=== PATIENT | female | born 1985 | race Caucasian/White ===

== ENCOUNTER 2022-03-01 09:00 | Inpatient (IN) | payer OTHER ==
[2022-03-01] MEDS: ELECTROLYTE-148 SOLN 1,000 ML IV SCH (09:15)
[2022-03-01 10:37] VITALS: BMI 29.8
[2022-03-01 11:07] LABS: BASO % 0.2 % (0-2.0); EOS % 0.3 % (0-4.5); HEMATOCRIT 34.4 % (32.4-45.2); HEMOGLOBIN 11.4 GM/dL (10.7-15.3); LYMPH % 11.7 % (8-40); MCH 29.4 pg (25.7-33.7); MCHC 33.2 g/dl (32.0-36.0); MEAN CELL VOLUME 88.8 fl (80-96); MEAN PLT VOLUME 9.6 fl (7.5-11.1); NEUT % 79.8 % (42.8-82.8); PLATELET COUNT 218 10^3/uL (134-434); RBC 3.87 M/mm3 (3.60-5.2); RDW 13.5 % (11.6-15.6); WHITE BLOOD COUNT 14.8 K/mm3 (4.0-10.0)
[2022-03-01 11:11] LABS: INR 0.97 (0.83-1.09); PROTHROMBIN TIME (PATIENT) 11.2 SEC (9.7-13.0)
[2022-03-01 11:13] LABS: ACTIVATED PTT 24.3 SECONDS (25.2-36.5)
[2022-03-01 11:32] LABS: BLOOD UREA NITROGEN 6.3 mg/dL (7-18); CALCIUM 8.9 mg/dL (8.5-10.1)
[2022-03-01 11:36] LABS: CREATININE 0.6 mg/dL (0.55-1.3)
[2022-03-01] MEDS ORDERED: FENTANYL/BUPIVACAINE/NS/PF - PCEA - 50 ML DISP.SYRIN EP ONE ×2 (14:57→18:43)
[2022-03-01] MEDS ORDERED: BUPIVACAINE HCL/PF 0.25% (2.5MG/ML) 10 ML VIAL ONE (15:03)
[2022-03-01] MEDS ORDERED: OXYTOCIN 30 UNITS in 0.9% NS 30 UNIT/500 ML INFUS.BAG IVPB ONE (19:14)
[2022-03-01] MEDS ORDERED: OXYTOCIN 30 UNITS in 0.9% NS 30 UNIT/500 ML INFUS.BAG IVPB SCH (19:15)
[2022-03-01] MEDS ORDERED: NALOXONE HCL 0.4 MG/ML VIAL IVPUSH PRN (19:23)
[2022-03-01] MEDS ORDERED: FENTANYL/BUPIVACAINE/NS/PF - PCEA - 50 ML DISP.SYRIN EP SCH (19:30)
[2022-03-01] MEDS ORDERED: ceFAZolin SODIUM 1 GM VIAL ONE (20:12)
[2022-03-01] MEDS ORDERED: ceFAZolin 2 GRAM PREMIX BAG IVPB ONE (20:19)
[2022-03-01] MEDS ORDERED: CITRIC ACID/SODIUM CITRATE 30 ML UNIT-DOSE CUP PO ONE (20:21)
[2022-03-01] MEDS ORDERED: CEFAZOLIN SODIUM 2 GM in DEXTROSE 5%-WATER 100 ML IVPB ONE (20:30)
[2022-03-01] MEDS ORDERED: OXYTOCIN 10 UNITS/ML VIAL ONE ×2 (21:21→21:57)
[2022-03-01] MEDS ORDERED: GENTAMICIN SO4 80 MG/2 ML VIAL ONE (21:22)
[2022-03-01] MEDS ORDERED: ACETAMINOPHEN INJECTION 100 ML IVPB ONE (21:27)
[2022-03-01] MEDS ORDERED: KETOROLAC TROMETHAMINE 30 MG/1 ML VIAL ONE (21:39)
[2022-03-01] MEDS ORDERED: ONDANSETRON 4 MG/2 ML VIAL ONE (21:39)
[2022-03-01] MEDS ORDERED: METHYLERGONOVINE MALEATE 0.2 MG/1 ML AMP IM PRN (22:17)
[2022-03-01] MEDS ORDERED: ACETAMINOPHEN 325 MG TABLET (FP) PO PRN (22:17)
[2022-03-01] MEDS ORDERED: IBUPROFEN 800 MG/8 ML IJ IVPB PRN (22:18)
[2022-03-01] MEDS ORDERED: OXYTOCIN 20 UNITS in 0.9% NS 20 UNIT/1,000 ML INFUS.BAG IV SCH (22:30)
[2022-03-01 23:47] LABS: CORD BASE EXCESS -8.3 mmol/L (0-2); CORD HCO3 18.4 mmHg (20-29); CORD PCO2 41.7 mmHg (30-78); CORD pH 7.262 (7.14-7.44)
[2022-03-01 23:48] LABS: CORD BASE EXCESS -6.3 mmol/L (0-2); CORD HCO3 19.3 mmHg (20-29); CORD PCO2 38.8 mmHg (30-78); CORD pH 7.314 (7.14-7.44)
[2022-03-02] MEDS ORDERED: ceFAZolin 2 GRAM PREMIX BAG IVPB SCH (02:00)
[2022-03-02] MEDS: CEFAZOLIN SODIUM 2 GM in DEXTROSE 5%-WATER 100 ML IVPB SCH ×3 (03:31→18:50)
[2022-03-02] MEDS: SIMETHICONE 80 MG TAB.CHEW (FP) PO PRN ×4 (05:33→18:56)
[2022-03-02] MEDS: IBUPROFEN 600 MG TABLET (FP) PO PRN ×4 (05:35→21:22)
[2022-03-02 08:31] LABS: BASO % 0.2 % (0-2.0); EOS % 0.1 % (0-4.5); HEMATOCRIT 27.6 % (32.4-45.2); HEMOGLOBIN 9.2 GM/dL (10.7-15.3); LYMPH % 13.4 % (8-40); MCH 29.5 pg (25.7-33.7); MCHC 33.1 g/dl (32.0-36.0); MEAN CELL VOLUME 89.1 fl (80-96); MONO % 7.5 % (3.8-10.2); NEUT % 78.8 % (42.8-82.8); PLATELET COUNT 178 10^3/uL (134-434); RDW 13.6 % (11.6-15.6); WHITE BLOOD COUNT 15.8 K/mm3 (4.0-10.0)
[2022-03-02] MEDS: ENOXAPARIN NA (PORCINE) 40 MG/0.4 ML DISP.SYRIN SQ SCH (10:58)
[2022-03-02] MEDS: oxyCODONE HCL 5 MG TABLET PO PRN ×2 (18:54→20:19)
[2022-03-02] MEDS: ELECTROLYTE-148 SOLN 1,000 ML IV SCH (20:39)
[2022-03-02] MEDS ORDERED: BISACODYL 10 MG SUPP.RECT RC PRN (22:17)
[2022-03-03] MEDS: SIMETHICONE 80 MG TAB.CHEW (FP) PO PRN ×5 (00:01→21:03)
[2022-03-03] MEDS: oxyCODONE HCL 5 MG TABLET PO PRN ×5 (00:01→21:03)
[2022-03-03] MEDS: CEFAZOLIN SODIUM 2 GM in DEXTROSE 5%-WATER 100 ML IVPB SCH ×2 (01:25→10:00)
[2022-03-03] MEDS: IBUPROFEN 600 MG TABLET (FP) PO PRN ×4 (01:25→22:58)
[2022-03-03] MEDS: ENOXAPARIN NA (PORCINE) 40 MG/0.4 ML DISP.SYRIN SQ SCH (10:43)
[2022-03-04] MEDS: oxyCODONE HCL 5 MG TABLET PO PRN ×3 (01:29→17:58)
[2022-03-04] MEDS: SIMETHICONE 80 MG TAB.CHEW (FP) PO PRN ×3 (01:29→20:46)
[2022-03-04 08:56] LABS: BASO % 0.2 % (0-2.0); EOS % 1.2 % (0-4.5); HEMOGLOBIN 10.6 GM/dL (10.7-15.3); LYMPH % 15.3 % (8-40); MCH 29.6 pg (25.7-33.7); MCHC 33.2 g/dl (32.0-36.0); MEAN CELL VOLUME 89.2 fl (80-96); MEAN PLT VOLUME 9.5 fl (7.5-11.1); MONO % 9.1 % (3.8-10.2); NEUT % 74.2 % (42.8-82.8); PLATELET COUNT 219 10^3/uL (134-434); RBC 3.59 M/mm3 (3.60-5.2); RDW 13.6 % (11.6-15.6); WHITE BLOOD COUNT 15.9 K/mm3 (4.0-10.0)
[2022-03-04] MEDS: ENOXAPARIN NA (PORCINE) 40 MG/0.4 ML DISP.SYRIN SQ SCH (10:53)
[2022-03-04] MEDS: IBUPROFEN 600 MG TABLET (FP) PO PRN ×2 (14:18→20:46)
[2022-03-05] MEDS: IBUPROFEN 600 MG TABLET (FP) PO PRN ×2 (01:59→09:54)
[2022-03-05] MEDS: ENOXAPARIN NA (PORCINE) 40 MG/0.4 ML DISP.SYRIN SQ SCH (09:54)
[2022-03-05 10:42] VITALS: BP 98/62; PULSE 91; TEMP 98.1
== END 2022-03-05 12:55 | disposition home or self-care (01) | DRG 787 ==
LOC: JDEL 09:00 → JLDR 09:15 → J3W 23:49
PROVIDERS: ADMIT Obstetrics & Gynecology; ATTEND Obstetrics & Gynecology
PROC: 10D00Z1 Extraction of Products of Conception, Low, Open Approach (ICD-10-PCS; principal; 2022-03-01)
DX: O24.429 Gestational diabetes mellitus in childbirth, unspecified control (principal); O75.2 Pyrexia during labor, not elsewhere classified; O76 Abnormality in fetal heart rate and rhythm complicating labor and delivery; O69.81X0 Labor and delivery complicated by cord around neck, without compression, not applicable or unspecified; Z3A.38 38 weeks gestation of pregnancy; Z37.0 Single live birth
CPT/HCPCS: 36415; 36600; 80048; 82803; 82962; 85025; 85610; 85730; 86780; 86850; 86900; 86901; 88307-TC; C9803-CS; U0003; U0005

== ENCOUNTER 2022-03-09 11:43 | Inpatient (IN) | payer OTHER ==
[2022-03-09 12:01] VITALS: BMI 27.4
[2022-03-09] MEDS ORDERED: CEFAZOLIN 1 GM in DEXTROSE 5%-WATER - 50 ML IVPB ONE (13:28)
[2022-03-09] MEDS ORDERED: morphine CARPU-JECT 2 MG/1 ML DISP.SYRIN IVPUSH ONE (13:28)
[2022-03-09] MEDS ORDERED: ceFAZolin SODIUM 1 GM VIAL ONE (13:38)
[2022-03-09 14:48] LABS: BASO % 0.4 % (0-2.0); EOS % 1.3 % (0-4.5); HEMATOCRIT 32.4 % (32.4-45.2); HEMOGLOBIN 10.6 GM/dL (10.7-15.3); LYMPH % 13.5 % (8-40); MCH 28.8 pg (25.7-33.7); MCHC 32.8 g/dl (32.0-36.0); MEAN CELL VOLUME 87.8 fl (80-96); MEAN PLT VOLUME 8.7 fl (7.5-11.1); MONO % 6.3 % (3.8-10.2); NEUT % 78.5 % (42.8-82.8); PLATELET COUNT 399 10^3/uL (134-434); RBC 3.68 M/mm3 (3.60-5.2); RDW 14.1 % (11.6-15.6); WHITE BLOOD COUNT 13.9 K/mm3 (4.0-10.0)
[2022-03-09] MEDS ORDERED: IBUPROFEN 600 MG TABLET (FP) PO PRN (14:49)
[2022-03-09] MEDS ORDERED: ACETAMINOPHEN 325 MG TABLET (FP) PO PRN (14:49)
[2022-03-09] MEDS ORDERED: ELECTROLYTE-148 SOLN 1,000 ML IV SCH (15:00)
[2022-03-09 15:03] LABS: CHLORIDE 107 mmol/L (98-107); SODIUM 137 mmol/L (136-145)
[2022-03-09 15:05] LABS: CALCIUM 8.9 mg/dL (8.5-10.1)
[2022-03-09 15:07] LABS: ALBUMIN 2.2 g/dl (3.4-5.0); BLOOD UREA NITROGEN 10.8 mg/dL (7-18); CO2 24 mmol/L (21-32); GLUCOSE,RANDOM 81 mg/dL (74-106)
[2022-03-09 15:09] LABS: CREATININE 0.7 mg/dL (0.55-1.3); SGOT/AST 63 U/L (15-37); SGPT/ALT 20 U/L (13-61)
[2022-03-09 15:10] LABS: BILIRUBIN,TOTAL 0.7 mg/dL (0.2-1)
[2022-03-09 15:11] LABS: TOT PROT 6.9 g/dl (6.4-8.2)
[2022-03-09 15:13] LABS: ALK PHOS 165 U/L (45-117)
[2022-03-09 15:16] LABS: ANION GAP 6 MMOL/L (8-16)
[2022-03-09] MEDS ORDERED: VANCOMYCIN 1 GM in D5W (PRE-DOCKED) 1,000 MG/250 ML IVPB ONE (15:18)
[2022-03-09] MEDS ORDERED: MEROPENEM 1 GM in DEXTROSE 5%-WATER 100 ML IVPB ONE (15:18)
[2022-03-09] MEDS ORDERED: MEROPENEM 1 GM VIAL (RESTRICTED TO ID) IVPB ONE (16:02)
[2022-03-09 16:42] LABS: EPI CELLS 7 /uL (0-25.1); HYALINE CASTS 10 /uL (0-3.1); URINE APPEARANCE CLOUDY; URINE BACTERIA 289 /uL (0-1359); URINE BILIRUBIN NEGATIVE (NEGATIVE); URINE COLOR YELLOW; URINE GLUCOSE (UA) NEGATIVE (NEGATIVE); URINE KETONE TRACE (NEGATIVE); URINE LEUK ESTERASE 3+ (NEGATIVE); URINE NITRITE NEGATIVE (NEGATIVE); URINE PROTEIN TRACE (NEGATIVE); URINE RBC 11 /uL (0-23.9); URINE WBC 908 /uL (0-25.8)
[2022-03-09] MEDS ORDERED: oxyCODONE HCL 5 MG TABLET ONE (16:45)
[2022-03-09] MEDS: oxyCODONE HCL 5 MG TABLET PO PRN (16:50)
[2022-03-09] MEDS ORDERED: VANCOMYCIN 1 GRAM (PRE-DOCKED) 1,000 MG/250 ML BAG IVPB ONE (17:42)
[2022-03-09] MEDS ORDERED: PIPERACILLIN/TAZOB 4.5 GM 4.5 GM in DEXTROSE 5%-WATER 100 ML IVPB SCH (21:45)
[2022-03-09] MEDS ORDERED: DEXTROSE 5%-WATER 100 ML IVPB ONE (22:49)
[2022-03-09] MEDS ORDERED: PIPERACILLIN/TAZOBACTAM 4.5 GM VIAL IVPB ONE (22:49)
[2022-03-09] MEDS: CLINDAMYCIN 900 MG PREMIX IVPB 900 MG/50 ML BAG IVPB SCH (23:03)
[2022-03-09] MEDS: PIPERACILLIN/TAZOB 4.5 GM 4.5 GM in DEXTROSE 5%-WATER 100 ML IVPB SCH (23:06)
[2022-03-09] MEDS: ACETAMINOPHEN 1000 MG/100 ML BAG IVPB PRN (23:06)
[2022-03-09] MEDS: POTASSIUM CHLORIDE 10 MEQ in SODIUM CHLORIDE 1,000 ML IVPB SCH (23:07)
[2022-03-10] MEDS ORDERED: PIPERACILLIN/TAZOBACTAM 4.5 GM VIAL IVPB ONE ×2 (02:11→08:29)
[2022-03-10] MEDS ORDERED: DEXTROSE 5%-WATER 100 ML IVPB ONE ×2 (02:11→08:29)
[2022-03-10] MEDS: PIPERACILLIN/TAZOB 4.5 GM 4.5 GM in DEXTROSE 5%-WATER 100 ML IVPB SCH ×2 (02:13→08:41)
[2022-03-10] MEDS: CLINDAMYCIN 900 MG PREMIX IVPB 900 MG/50 ML BAG IVPB SCH ×3 (04:26→17:04)
[2022-03-10] MEDS: ACETAMINOPHEN 1000 MG/100 ML BAG IVPB PRN (05:02)
[2022-03-10] MEDS: oxyCODONE HCL 5 MG TABLET PO PRN ×4 (08:31→23:03)
[2022-03-10] MEDS: POTASSIUM CHLORIDE 10 MEQ in SODIUM CHLORIDE 1,000 ML IVPB SCH ×3 (08:44→23:10)
[2022-03-10] MEDS ORDERED: DOCUSATE SODIUM 100 MG CAPSULE (FP) PO PRN (08:51)
[2022-03-10] MEDS: ENOXAPARIN NA (PORCINE) 40 MG/0.4 ML DISP.SYRIN SQ SCH (10:15)
[2022-03-10 10:52] LABS: ALBUMIN 1.8 g/dl (3.4-5.0); BASO % 0.4 % (0-2.0); EOS % 1.9 % (0-4.5); HEMATOCRIT 29.4 % (32.4-45.2); HEMOGLOBIN 9.8 GM/dL (10.7-15.3); LYMPH % 14.2 % (8-40); MCH 29.2 pg (25.7-33.7); MCHC 33.3 g/dl (32.0-36.0); MEAN CELL VOLUME 87.8 fl (80-96); MEAN PLT VOLUME 8.1 fl (7.5-11.1); MONO % 7.8 % (3.8-10.2); NEUT % 75.7 % (42.8-82.8); PLATELET COUNT 336 10^3/uL (134-434); RBC 3.35 M/mm3 (3.60-5.2); RDW 14.4 % (11.6-15.6)
[2022-03-10 10:53] LABS: BLOOD UREA NITROGEN 8.6 mg/dL (7-18)
[2022-03-10 10:55] LABS: CREATININE 0.9 mg/dL (0.55-1.3)
[2022-03-10 10:57] LABS: BILIRUBIN,TOTAL 0.4 mg/dL (0.2-1); TOT PROT 5.2 g/dl (6.4-8.2)
[2022-03-10] MEDS ORDERED: DEXTROSE 5%-WATER - 50 ML IVPB ONE (16:57)
[2022-03-10] MEDS ORDERED: PIPERACILLIN/TAZOBACTAM 3.375 GM VIAL IVPB ONE (16:57)
[2022-03-10] MEDS: PIPERACILLIN/TAZOB 3.375 GM 3.375 GM in DEXTROSE 5%-WATER - 50 ML IVPB SCH (18:38)
[2022-03-10] MEDS ORDERED: CLINDAMYCIN 900 MG PREMIX IVPB 900 MG/50 ML BAG IVPB SCH (21:45)
[2022-03-11] MEDS: CLINDAMYCIN 900 MG PREMIX IVPB 900 MG/50 ML BAG IVPB SCH (01:39)
[2022-03-11] MEDS ORDERED: PIPERACILLIN/TAZOBACTAM 3.375 GM VIAL IVPB ONE ×3 (01:56→17:56)
[2022-03-11] MEDS ORDERED: DEXTROSE 5%-WATER - 50 ML IVPB ONE ×3 (01:57→17:56)
[2022-03-11] MEDS: PIPERACILLIN/TAZOB 3.375 GM 3.375 GM in DEXTROSE 5%-WATER - 50 ML IVPB SCH ×3 (02:42→18:01)
[2022-03-11] MEDS: oxyCODONE HCL 5 MG TABLET PO PRN ×2 (05:11→11:45)
[2022-03-11] MEDS: POTASSIUM CHLORIDE 10 MEQ in SODIUM CHLORIDE 1,000 ML IVPB SCH (07:07)
[2022-03-11] MEDS: ENOXAPARIN NA (PORCINE) 40 MG/0.4 ML DISP.SYRIN SQ SCH (11:39)
[2022-03-11] MEDS: POLYETHYLENE GLYCOL (HEALTHYLAX) 3350 17 GM PACKET PO SCH (21:17)
[2022-03-12] MEDS: oxyCODONE HCL 5 MG TABLET PO PRN (00:39)
[2022-03-12] MEDS ORDERED: PIPERACILLIN/TAZOBACTAM 3.375 GM VIAL IVPB ONE ×3 (01:00→17:26)
[2022-03-12] MEDS ORDERED: DEXTROSE 5%-WATER - 50 ML IVPB ONE ×3 (01:01→17:26)
[2022-03-12] MEDS: PIPERACILLIN/TAZOB 3.375 GM 3.375 GM in DEXTROSE 5%-WATER - 50 ML IVPB SCH ×3 (01:12→18:11)
[2022-03-12 09:55] LABS: BASO % 0.9 % (0-2.0); EOS % 2.8 % (0-4.5); HEMATOCRIT 30.3 % (32.4-45.2); HEMOGLOBIN 10.1 GM/dL (10.7-15.3); LYMPH % 31.1 % (8-40); MCH 29.2 pg (25.7-33.7); MCHC 33.3 g/dl (32.0-36.0); MEAN CELL VOLUME 87.8 fl (80-96); MEAN PLT VOLUME 8.1 fl (7.5-11.1); MONO % 7.5 % (3.8-10.2); NEUT % 57.7 % (42.8-82.8); PLATELET COUNT 395 10^3/uL (134-434); RBC 3.45 M/mm3 (3.60-5.2); RDW 14.3 % (11.6-15.6); WHITE BLOOD COUNT 7.6 K/mm3 (4.0-10.0)
[2022-03-12 10:09] LABS: BLOOD UREA NITROGEN 5.7 mg/dL (7-18); CALCIUM 8.6 mg/dL (8.5-10.1)
[2022-03-12 10:10] LABS: ALBUMIN 1.9 g/dl (3.4-5.0)
[2022-03-12 10:12] LABS: CREATININE 0.7 mg/dL (0.55-1.3)
[2022-03-12 10:14] LABS: BILIRUBIN,TOTAL 0.5 mg/dL (0.2-1); TOT PROT 5.5 g/dl (6.4-8.2)
[2022-03-12] MEDS: POLYETHYLENE GLYCOL (HEALTHYLAX) 3350 17 GM PACKET PO SCH ×2 (10:18→21:16)
[2022-03-12] MEDS: ENOXAPARIN NA (PORCINE) 40 MG/0.4 ML DISP.SYRIN SQ SCH (10:18)
[2022-03-12] MEDS ORDERED: ACETAMINOPHEN 325 MG TABLET (FP) PO PRN (17:52)
[2022-03-13] MEDS ORDERED: PIPERACILLIN/TAZOBACTAM 3.375 GM VIAL IVPB ONE (00:32)
[2022-03-13] MEDS ORDERED: DEXTROSE 5%-WATER - 50 ML IVPB ONE (00:33)
[2022-03-13] MEDS: PIPERACILLIN/TAZOB 3.375 GM 3.375 GM in DEXTROSE 5%-WATER - 50 ML IVPB SCH (02:12)
[2022-03-13 09:55] VITALS: BP 118/74; PULSE 56; TEMP 98.7
== END 2022-03-13 11:39 | disposition home or self-care (01) | DRG 776 ==
LOC: JER 11:43 → JERBED 13:38 → J5S 19:02 → J8W 03-12 21:40
PROVIDERS: ADMIT Obstetrics & Gynecology; ATTEND Obstetrics & Gynecology
DX: O86.02 Infection of obstetric surgical wound, deep incisional site (principal); O86.29 Other urinary tract infection following delivery; N39.0 Urinary tract infection, site not specified; O99.893 Other specified diseases and conditions complicating puerperium; O24.439 Gestational diabetes mellitus in the puerperium, unspecified control; B96.29 Other Escherichia coli [E. coli] as the cause of diseases classified elsewhere; B95.4 Other streptococcus as the cause of diseases classified elsewhere; O99.215 Obesity complicating the puerperium
CPT/HCPCS: 36415; 76705-TC; 80053; 81003; 84132; 84702; 85025; 86850; 86900; 86901; 87040; 87070; 87086; 87186; 87205; 93005; 93010; 99285-25; C9803-CS; U0003; U0005